=== PATIENT | male | born 1965 | race Caucasian/White ===

== ENCOUNTER 2019-12-23 07:43 | Outpatient (RCR) | payer OTHER | END 2020-01-10 | LOC: OT 07:43 | PROVIDERS: ATTEND Orthopaedic Surgery Hand Surgery | DX: Z96.691 Finger-joint replacement of right hand (principal); M18.11 Unilateral primary osteoarthritis of first carpometacarpal joint, right hand; M79.641 Pain in right hand; M25.641 Stiffness of right hand, not elsewhere classified | CPT/HCPCS: 97110; 97165; L3808 ==